=== PATIENT | female | born 1995 | race Caucasian/White ===

== ENCOUNTER 2017-10-19 16:40 | Emergency (ER) | payer BC, OTHER | END 2017-10-19 17:17 | disposition left against medical advice (07) | LOC: FB.ED 16:40 | DX: Z53.21 Procedure and treatment not carried out due to patient leaving prior to being seen by health care provider (principal) ==

== ENCOUNTER 2019-01-16 07:26 | Observation (INO) | payer MEDICAID ==
[2019-01-16] MEDS ORDERED: Misoprostol 25 MCG (1/4 of 100 MCG) Tab RECTAL ONE (08:45)
[2019-01-16] MEDS ORDERED: Misoprostol 25 MCG (1/4 of 100 MCG) Tab VAG ONE (08:50)
[2019-01-16] MEDS ORDERED: Ampicillin 2 GM in Sodium Chloride 0.9% 100 ML IV ONE (09:00)
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
[2019-01-16] MEDS ORDERED: Sodium Chloride 0.9% 250 ML IV SCH (09:30)
[2019-01-16] MEDS: Sodium Chloride 0.9% 10 ML Syringe FLUSH PRN ×2 (09:31→13:29)
[2019-01-16] MEDS ORDERED: Lactated Ringers 1,000 ML IV SCH (12:45)
[2019-01-16] MEDS: Ampicillin 1 GM in Sodium Chloride 0.9% 50 ML IV SCH ×2 (13:20→17:37)
--- NOTE | 2019-01-18 20:10 | DISCH ---
DISCHARGE DATE: 01/16/2019 REASON FOR ADMISSION: Induction of labor. DISCHARGE DIAGNOSIS: Failed induction. BRIEF HISTORY: This is a 23-year-old primigravida, brought in at term for induction of labor. Pitocin was initiated with some progression after Cytotec. However, due to the weather and inability to obtain enough emergency staff, the procedure for induction was abandoned, and the patient was sent home to return tomorrow morning. I spent more than 35 minutes in the discharge of the patient. /[id number] PURA/CLAUDE
== END 2019-01-16 20:05 | disposition home or self-care (01) ==
LOC: FB.OB 07:26
PROVIDERS: ADMIT Family Medicine; ATTEND Family Medicine
DX: O61.0 Failed medical induction of labor (principal); O99.343 Other mental disorders complicating pregnancy, third trimester; F90.9 Attention-deficit hyperactivity disorder, unspecified type; F41.1 Generalized anxiety disorder; O99.820 Streptococcus B carrier state complicating pregnancy; Z3A.39 39 weeks gestation of pregnancy; Z79.899 Other long term (current) drug therapy
CPT/HCPCS: 36415; 85025; 86850; 86900; 86901; A9270; J0290; J7030; J7050

== ENCOUNTER 2019-01-17 07:00 | Inpatient (IN) | payer MEDICAID ==
[~2019-01-17 07:00] MED LIST: Sodium Chloride 0.9% 250 ML IV SCH
[2019-01-17] MEDS ORDERED: Ampicillin 2 GM in Sodium Chloride 0.9% 50 ML IV ONE (07:13)
[2019-01-17] MEDS ORDERED: Ampicillin 2 GM in Sodium Chloride 0.9% 100 ML IV ONE (07:30)
[2019-01-17] MEDS ORDERED: Lactated Ringers 1,000 ML IV ONE (08:42)
[2019-01-17] MEDS ORDERED: fentaNYL 400 MCG in Ropivacaine HCl/PF 200 ML IV ONE (09:50)
[2019-01-17] MEDS ORDERED: Promethazine 6.25 MG in Sodium Chloride 0.9% 50 ML IV PRN (09:52)
[2019-01-17] MEDS ORDERED: Promethazine 12.5 MG in Sodium Chloride 0.9% 50 ML IV PRN (09:52)
[2019-01-17] MEDS ORDERED: Naloxone 0.4 MG/ML SDV IVPUSH PRN (09:52)
[2019-01-17] MEDS ORDERED: Ondansetron 4 MG/2 ML SDV IVPUSH PRN (09:52)
[2019-01-17] MEDS ORDERED: diphenhydrAMINE 50 MG/ML SDV IV PRN (09:52)
[2019-01-17] MEDS ORDERED: Lactated Ringers 500 ML IV SCH (10:00)
[2019-01-17] MEDS ORDERED: Lactated Ringers 1,000 ML IV SCH (10:00)
[2019-01-17] MEDS: ePHEDrine 50 MG/ML SDV IVPUSH PRN ×4 (10:08→13:33)
[2019-01-17] MEDS: Ampicillin 1 GM in Sodium Chloride 0.9% 50 ML IV SCH ×3 (11:12→19:41)
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
[2019-01-17] MEDS ORDERED: Acetaminophen/Codeine 300-30 MG Tab PO PRN (17:28)
--- NOTE | 2019-01-17 17:32 | PCM.DEL ---
L & D Note - General Info Date of Service: 01/17/19 - Delivery Note Labor: Spontaneous, Augmented by ARM Delivery Outcome: Livebirth Infant Delivery Method: Spontaneous Vaginal Delivery-Single Presentation: Vertex Nuchal Cord: None Prep: Povidone-Iodine (Betadine Anesthesia Type: Epidural Amniotic Fluid Description: Clear Episiotomy Type: None Laceration: 2nd Degree Suture type: Chromic Suture size: 4-0 Placenta: Intact, Spontaneous Cord: 3 Vessels Estimated Blood Loss: 300 Resuscitation Needed: No [place]: Suctioned, Bulb Syringe, Stimulated, Warmed, Warmer Used Provider: Stanley Bello Score 5 min: 9 Score 10 min: 9 Second Stage Interventions: Reports: Second Nurse Assessed Progress of Descent, Second Nurse Reviewed Heart Tones, Encouragement Given, Pushing Effectively, Pushing, Birthing Stool - General Info Date of Service: 01/17/19 Functional Status: Reports: Pain Controlled - Review of Systems General: Reports: No Symptoms HEENT: Reports: No Symptoms Pulmonary: Reports: No Symptoms Cardiovascular: Reports: No Symptoms Gastrointestinal: Reports: No Symptoms Genitourinary: Reports: No Symptoms Musculoskeletal: Reports: No Symptoms Skin: Reports: No Symptoms Neurological: Reports: No Symptoms Psychiatric: Reports: No Symptoms - Patient Data Vitals - Most Recent: Last Vital Signs Temp 97.5 F 01/17/19 07:09 Pulse 81 01/17/19 15:41 Resp 18 01/17/19 09:59 BP 118/72 01/17/19 15:30 Pulse Ox 100 01/17/19 14:26 Weight - Most Recent: 92.533 kg Med Orders - Current: Current Medications Diphenhydramine HCl (Benadryl) 25 mg IV ASDIRECTED PRN PRN Reason: Pruritus Ephedrine Sulfate (Ephedrine Sulfate) 5 mg IVPUSH ASDIRECTED PRN PRN Reason: Hypotension Last Admin: 01/17/19 13:33 Dose: 5 mg Ampicillin Sodium 1 gm/ Sodium (Chloride) 50 mls @ 100 mls/hr IV Q4H RON Last Admin: 01/17/19 15:09 Dose: 100 mls/hr Lactated Ringer's (Ringers, Lactated) 1,000 mls @ 999 mls/hr IV BOLUS RON Promethazine HCl 6.25 mg/ (Sodium Chloride) 50.25 mls @ 200 mls/hr IV Q4H PRN PRN Reason: Nausea/Vomiting Promethazine HCl 12.5 mg/ (Sodium Chloride) 50.5 mls @ 200 mls/hr IV Q6H PRN PRN Reason: Nausea/Vomiting Lactated Ringer's (Ringers, Lactated) 1,000 mls @ 125 mls/hr IV ASDIRECTED RON Oxytocin/Sodium Chloride (Pitocin In Ns 20 Units/1,000 Ml) 20 unit in 1,000 mls @ 6 mls/hr IV TITRATE RON; Protocol Last Admin: 01/17/19 15:11 Dose: 2 munits/min, 6 mls/hr Naloxone HCl (Narcan) 0.1 mg IVPUSH ONETIME PRN PRN Reason: Sedation Ondansetron HCl (Zofran) 4 mg IVPUSH Q6H PRN PRN Reason: Nausea/Vomiting Discontinued Medications Ampicillin Sodium 2 gm/ Sodium (Chloride) 100 mls @ 200 mls/hr IV ONETIME ONE Stop: 01/17/19 07:59 Last Admin: 01/17/19 07:35 Dose: 200 mls/hr Lactated Ringer's (Ringers, Lactated) 1,000 mls @ 999 mls/hr IV BOLUS ONE Stop: 01/17/19 09:42 Last Admin: 01/17/19 08:55 Dose: 999 mls/hr - Exam General: Alert, Oriented HEENT: Pupils Equal, Pupils Reactive, EOMI, Mucous Membr. Moist/[place] Neck: Supple Lungs: Clear to Auscultation, Normal Respiratory Effort Cardiovascular: Regular Rate, Regular Rhythm GI/Abdominal Exam: Normal Bowel Sounds, Soft, Non-Tender, No Organomegaly, No Distention, No Abnormal Bruit, No Mass, Pelvis Stable (Female) Exam: Normal External Exam, Normal Speculum Exam, Normal Bimanual Exam Back Exam: Normal Inspection, Full Range of Motion Extremities: Normal Inspection, Normal Range of Motion, Non-Tender, No Pedal Edema, Normal Capillary Refill Skin: Warm, Dry, Intact Wound/Incisions: Healing Well Neurological: No New Focal Deficit Psy/Mental Status: Alert, Normal Affect, Normal Mood Physical Findings Comments:: Routine care - Problem List & Annotations (1) SNOMED Code(s): 75748264 Code(s): Z34.90 - ENCNTR FOR SUPRVSN OF NORMAL , UNSP, UNSP TRIMESTER Status: Acute Qualifiers: Weeks of gestation: 40 weeks Qualified Code(s): Z3A.40 - 40 weeks gestation of (2) ADHD SNOMED Code(s): 172989172 Code(s): F90.9 - ATTENTION-DEFICIT HYPERACTIVITY DISORDER, UNSPECIFIED TYPE Status: Acute Qualifiers: (3) JORDY (generalized anxiety disorder) SNOMED Code(s): 63482256 Code(s): F41.1 - GENERALIZED ANXIETY DISORDER Status: Acute (4) Group B streptococcal carriage complicating SNOMED Code(s): 078835071448336 Code(s): O99.820 - STREPTOCOCCUS B CARRIER STATE COMPLICATING Status: Acute - Problem List Review Problem List Initiated/Reviewed/Updated: Yes - My Orders Last 24 Hours: My Active Orders 01/17/19 08:45 Admission Status [Patient Status] [ADT] Routine 01/17/19 10:00 Lactated Ringers [Ringers, Lactated] 1,000 ml IV ASDIRECTED 01/17/19 11:00 Ampicillin 1 gm Sodium Chloride 0.9% [Normal Saline] 50 ml IV Q4H 01/17/19 14:56 Communication Order [RC] ASDIRECTED Communication Order [RC] ASDIRECTED Communication Order [RC] ASDIRECTED Communication Order [RC] ASDIRECTED Non Stress Test [RC] Click to Edit Notify Provider [RC] PRN Notify Provider [RC] STAT Vital Signs [RC] PER UNIT ROUTINE 01/17/19 15:00 Oxytocin/Normal Saline [Pitocin in NS 20 Units/1,000 ML] 20 unit in 1,000 ml IV TITRATE 01/17/19 17:28 Up ad Nataly [RC] ASDIRECTED Vital Signs [RC] PFP Acetaminophen/Codeine [Tylenol with Codeine No.3 300MG/30MG] 1 tab PO Q4H PRN Ibuprofen [Motrin] 600 mg PO Q4H PRN Resuscitation Status Routine 01/17/19 17:29 Ice Therapy [OM.PC] Per Unit Routine Perineal Care [OM.PC] Per Unit Routine Sitz Bath [OM.PC] Per Unit Routine 01/17/19 Breakfast Regular Diet [DIET] 01/18/19 05:11 CBC WITH AUTO DIFF [HEME] AM - Plan Plan:: Routine care
[2019-01-17] MEDS: Ibuprofen 600 MG Tab PO PRN (19:57)
[2019-01-18] MEDS: Ibuprofen 600 MG Tab PO PRN ×3 (02:30→20:19)
--- NOTE | 2019-01-18 19:22 | PCM.PNPP ---
- General Info Date of Service: 01/18/19 Subjective Update: Doing well,except fatigue. Functional Status: Reports: Pain Controlled - Review of Systems General: Reports: No Symptoms HEENT: Reports: No Symptoms Pulmonary: Reports: No Symptoms Cardiovascular: Reports: No Symptoms Gastrointestinal: Reports: No Symptoms Genitourinary: Reports: No Symptoms Musculoskeletal: Reports: No Symptoms Skin: Reports: No Symptoms Neurological: Reports: No Symptoms Psychiatric: Reports: No Symptoms - General Info Date of Service: 01/18/19 - Patient Data Vital Signs - Most Recent: Last Vital Signs Temp 98.1 F 01/18/19 18:17 Pulse 850 H 01/18/19 18:17 Resp 18 01/18/19 18:17 BP 120/63 01/18/19 18:17 Pulse Ox 98 01/18/19 18:17 Weight - Most Recent: 92.533 kg Lab Results - Last 24 Hours: Laboratory Results - last 24 hr 01/18/19 01/18/19 Range/Units 06:15 16:15 WBC 9.8 (4.5-12.0) X10-3/uL RBC 3.75 (3.23-5.20) x10(6)uL Hgb 7.9 L 8.4 L (11.5-15.5) g/dL Hct 25.7 L (30.0-51.3) % MCV 68.6 L (80-96) fL MCH 21.1 L (27.7-33.6) pg MCHC 30.8 L (32.2-35.4) g/dL RDW 15.5 (11.5-15.5) % Plt Count 324 (125-369) X10(3)uL MPV 6.5 L (7.4-10.4) fL Neut % (Auto) 60.2 (46-82) % Lymph % (Auto) 30.7 (13-37) % [place] % (Auto) 7.9 (4-12) % Eos % (Auto) 1 (1.0-5.0) % Baso % (Auto) 0 (0-2) % Neut # (Auto) 5.9 (1.6-8.3) # Lymph # (Auto) 3.0 (0.6-5.0) # Kleberg # (Auto) 0.8 (0.0-1.3) # Eos # (Auto) 0.1 (0.0-0.8) # Baso # (Auto) 0.0 (0.0-0.2) # Med Orders - Current: Current Medications Acetaminophen/Codeine Phosphate (Tylenol With Codeine No.3 300mg/30mg) 1 tab PO Q4H PRN PRN Reason: Pain (moderate 4-6) Diphenhydramine HCl (Benadryl) 25 mg IV ASDIRECTED PRN PRN Reason: Pruritus Ephedrine Sulfate (Ephedrine Sulfate) 5 mg IVPUSH ASDIRECTED PRN PRN Reason: Hypotension Last Admin: 01/17/19 13:33 Dose: 5 mg Lactated Ringer's (Ringers, Lactated) 1,000 mls @ 999 mls/hr IV BOLUS RON Promethazine HCl 6.25 mg/ (Sodium Chloride) 50.25 mls @ 200 mls/hr IV Q4H PRN PRN Reason: Nausea/Vomiting Promethazine HCl 12.5 mg/ (Sodium Chloride) 50.5 mls @ 200 mls/hr IV Q6H PRN PRN Reason: Nausea/Vomiting Lactated Ringer's (Ringers, Lactated) 1,000 mls @ 125 mls/hr IV ASDIRECTED RON Oxytocin/Sodium Chloride (Pitocin In Ns 20 Units/1,000 Ml) 20 unit in 1,000 mls @ 6 mls/hr IV TITRATE RON; Protocol Last Titration: 01/17/19 17:16 Dose: 999 munits/min, 2,997 mls/hr Sodium Chloride (Normal Saline) 250 mls @ 100 mls/hr IV ASDIRECTED RON Last Admin: 01/17/19 07:30 Dose: 100 mls/hr Ibuprofen (Motrin) 600 mg PO Q4H PRN PRN Reason: Pain Last Admin: 01/18/19 09:24 Dose: 600 mg Naloxone HCl (Narcan) 0.1 mg IVPUSH ONETIME PRN PRN Reason: Sedation Ondansetron HCl (Zofran) 4 mg IVPUSH Q6H PRN PRN Reason: Nausea/Vomiting Last Admin: 01/17/19 19:56 Dose: 4 mg Discontinued Medications Ampicillin Sodium 1 gm/ Sodium (Chloride) 50 mls @ 100 mls/hr IV Q4H RON Last Admin: 01/17/19 19:41 Dose: Not Given Ampicillin Sodium 2 gm/ Sodium (Chloride) 100 mls @ 200 mls/hr IV ONETIME ONE Stop: 01/17/19 07:59 Last Admin: 01/17/19 07:35 Dose: 200 mls/hr Lactated Ringer's (Ringers, Lactated) 1,000 mls @ 999 mls/hr IV BOLUS ONE Stop: 01/17/19 09:42 Last Admin: 01/17/19 08:55 Dose: 999 mls/hr - Infant Interaction Infant Disposition, : in Room with Family Infant Feeding: Attempted ; Nursed Fair/Poor Support Person: Significant Other - Recovery Exam Fundal Tone: Firm Fundal Level: 3 Fingerbreadths Below Umbilicus Fundal Placement: Midline Lochia Amount: Small Lochia Color: Rubra/Red Perineum Description: Intact, Minimal Bruising/Swelling Episiotomy/Laceration: Approximated Bladder Status: Voiding - Exam General: Alert, Oriented HEENT: Pupils Equal Neck: Supple Lungs: Clear to Auscultation, Normal Respiratory Effort Cardiovascular: Regular Rate, Regular Rhythm GI/Abdominal Exam: Normal Bowel Sounds, Soft, Non-Tender, No Organomegaly, No Distention, No Abnormal Bruit, No Mass, Pelvis Stable Extremities: Normal Inspection, Normal Range of Motion, Non-Tender, No Pedal Edema, Normal Capillary Refill Skin: Warm, Dry, Intact Wound/Incisions: Healing Well Neurological: No New Focal Deficit Psy/Mental Status: Alert, Normal Affect, Normal Mood - Problem List & Annotations (1) SNOMED Code(s): 92508460 Code(s): Z34.90 - ENCNTR FOR SUPRVSN OF NORMAL , UNSP, UNSP TRIMESTER Status: Acute Current Visit: No Qualifiers: Weeks of gestation: 40 weeks Qualified Code(s): Z3A.40 - 40 weeks gestation of (2) ADHD SNOMED Code(s): 342059667 Code(s): F90.9 - ATTENTION-DEFICIT HYPERACTIVITY DISORDER, UNSPECIFIED TYPE Status: Acute Current Visit: No Qualifiers: (3) JORDY (generalized anxiety disorder) SNOMED Code(s): 87225943 Code(s): F41.1 - GENERALIZED ANXIETY DISORDER Status: Acute Current Visit : No (4) Group B streptococcal carriage complicating SNOMED Code(s): 849674989617473 Code(s): O99.820 - STREPTOCOCCUS B CARRIER STATE COMPLICATING Status: Acute Current Visit: No (5) Anemia SNOMED Code(s): 393796239 Code(s): D64.9 - ANEMIA, UNSPECIFIED Status: Acute Current Visit: Yes - Problem List Review Problem List Initiated/Reviewed/Updated: Yes - Plan Plan:: Routine care .Hgb up to 8.9.DC in AM
[2019-01-19] MEDS: Ibuprofen 600 MG Tab PO PRN (05:00)
--- NOTE | 2019-01-19 06:43 | PCM.PNPP ---
- General Info Date of Service: 01/19/19 Functional Status: Reports: Pain Controlled - Review of Systems General: Reports: No Symptoms HEENT: Reports: No Symptoms Pulmonary: Reports: No Symptoms Cardiovascular: Reports: No Symptoms Gastrointestinal: Reports: No Symptoms Genitourinary: Reports: No Symptoms Musculoskeletal: Reports: No Symptoms Skin: Reports: No Symptoms Neurological: Reports: No Symptoms Psychiatric: Reports: No Symptoms - General Info Date of Service: 01/19/19 - Patient Data Vital Signs - Most Recent: Last Vital Signs Temp 98.3 F 01/19/19 00:00 Pulse 67 01/19/19 00:00 Resp 16 01/19/19 00:00 BP 111/61 01/19/19 00:00 Pulse Ox 99 01/19/19 00:00 Weight - Most Recent: 92.533 kg Lab Results - Last 24 Hours: Laboratory Results - last 24 hr 01/18/19 01/18/19 Range/Units 06:15 16:15 WBC 9.8 (4.5-12.0) X10-3/uL RBC 3.75 (3.23-5.20) x10(6)uL Hgb 7.9 L 8.4 L (11.5-15.5) g/dL Hct 25.7 L (30.0-51.3) % MCV 68.6 L (80-96) fL MCH 21.1 L (27.7-33.6) pg MCHC 30.8 L (32.2-35.4) g/dL RDW 15.5 (11.5-15.5) % Plt Count 324 (125-369) X10(3)uL MPV 6.5 L (7.4-10.4) fL Neut % (Auto) 60.2 (46-82) % Lymph % (Auto) 30.7 (13-37) % [place] % (Auto) 7.9 (4-12) % Eos % (Auto) 1 (1.0-5.0) % Baso % (Auto) 0 (0-2) % Neut # (Auto) 5.9 (1.6-8.3) # Lymph # (Auto) 3.0 (0.6-5.0) # [place] # (Auto) 0.8 (0.0-1.3) # Eos # (Auto) 0.1 (0.0-0.8) # Baso # (Auto) 0.0 (0.0-0.2) # Med Orders - Current: Current Medications Acetaminophen/Codeine Phosphate (Tylenol With Codeine No.3 300mg/30mg) 1 tab PO Q4H PRN PRN Reason: Pain (moderate 4-6) Ibuprofen (Motrin) 600 mg PO Q4H PRN PRN Reason: Pain Last Admin: 01/19/19 05:00 Dose: 600 mg Discontinued Medications Diphenhydramine HCl (Benadryl) 25 mg IV ASDIRECTED PRN PRN Reason: Pruritus Stop: 01/19/19 00:26 Ephedrine Sulfate (Ephedrine Sulfate) 5 mg IVPUSH ASDIRECTED PRN PRN Reason: Hypotension Last Admin: 01/17/19 13:33 Dose: 5 mg Ampicillin Sodium 1 gm/ Sodium (Chloride) 50 mls @ 100 mls/hr IV Q4H RON Last Admin: 01/17/19 19:41 Dose: Not Given Ampicillin Sodium 2 gm/ Sodium (Chloride) 100 mls @ 200 mls/hr IV ONETIME ONE Stop: 01/17/19 07:59 Last Admin: 01/17/19 07:35 Dose: 200 mls/hr Lactated Ringer's (Ringers, Lactated) 1,000 mls @ 999 mls/hr IV BOLUS ONE Stop: 01/17/19 09:42 Last Admin: 01/17/19 08:55 Dose: 999 mls/hr Lactated Ringer's (Ringers, Lactated) 1,000 mls @ 999 mls/hr IV BOLUS RON Promethazine HCl 6.25 mg/ (Sodium Chloride) 50.25 mls @ 200 mls/hr IV Q4H PRN PRN Reason: Nausea/Vomiting Promethazine HCl 12.5 mg/ (Sodium Chloride) 50.5 mls @ 200 mls/hr IV Q6H PRN PRN Reason: Nausea/Vomiting Lactated Ringer's (Ringers, Lactated) 1,000 mls @ 125 mls/hr IV ASDIRECTED RON Oxytocin/Sodium Chloride (Pitocin In Ns 20 Units/1,000 Ml) 20 unit in 1,000 mls @ 6 mls/hr IV TITRATE RON; Protocol Last Titration: 01/17/19 17:16 Dose: 999 munits/min, 2,997 mls/hr Sodium Chloride (Normal Saline) 250 mls @ 100 mls/hr IV ASDIRECTED [facility] Last Admin: 01/17/19 07:30 Dose: 100 mls/hr Naloxone HCl (Narcan) 0.1 mg IVPUSH ONETIME PRN PRN Reason: Sedation Ondansetron HCl (Zofran) 4 mg IVPUSH Q6H PRN PRN Reason: Nausea/Vomiting Last Admin: 01/17/19 19:56 Dose: 4 mg - Interaction Disposition, : [place] in Room with Family Feeding: Attempted ; Nursed Fair/Poor Support Person: Significant Other - Recovery Exam Fundal Tone: Firm Fundal Level: 3 Fingerbreadths Below Umbilicus Fundal Placement: Midline Lochia Amount: Small, Moderate Lochia Color: Rubra/Red Perineum Description: Intact, Minimal Bruising/Swelling Episiotomy/Laceration: Approximated Bladder Status: Voiding - Exam General: Alert, Oriented HEENT: Pupils Equal Neck: Supple Lungs: Clear to Auscultation, Normal Respiratory Effort Cardiovascular: Regular Rate, Regular Rhythm GI/Abdominal Exam: Normal Bowel Sounds, Soft, Non-Tender, No Organomegaly, No Distention, No Abnormal Bruit, No Mass, Pelvis Stable Extremities: Normal Inspection, Normal Range of Motion, Non-Tender, No Pedal Edema, Normal Capillary Refill Skin: Warm, Dry, Intact Wound/Incisions: Healing Well Neurological: No New Focal Deficit Psy/Mental Status: Alert, Normal Affect, Normal Mood - Problem List & Annotations (1) SNOMED Code(s): 43198250 Code(s): Z34.90 - ENCNTR FOR SUPRVSN OF NORMAL , UNSP, UNSP TRIMESTER Status: Acute Current Visit: No Qualifiers: Weeks of gestation: 40 weeks Qualified Code(s): Z3A.40 - 40 weeks gestation of (2) ADHD SNOMED Code(s): 544993705 Code(s): F90.9 - ATTENTION-DEFICIT HYPERACTIVITY DISORDER, UNSPECIFIED TYPE Status: Acute Current Visit: No Qualifiers: (3) JORDY (generalized anxiety disorder) SNOMED Code(s): 19775084 Code(s): F41.1 - GENERALIZED ANXIETY DISORDER Status: Acute Current Visit : No (4) Group B streptococcal carriage complicating SNOMED Code(s): 044037183707022 Code(s): O99.820 - STREPTOCOCCUS B CARRIER STATE COMPLICATING Status: Acute Current Visit: No (5) Anemia SNOMED Code(s): 474801802 Code(s): D64.9 - ANEMIA, UNSPECIFIED Status: Acute Current Visit: Yes - Problem List Review Problem List Initiated/Reviewed/Updated: Yes - Plan Plan:: Routine Discharge.Hgb up to 8.9.Replace Iron.DC in AM
--- NOTE | 2019-01-20 08:11 | DISCH ---
DISCHARGE DATE: 01/19/2019 ADMISSION DIAGNOSES: 1. . 2. Labor. 3. Attention deficit hyperactivity disorder. 4. Group B Strep colonization affecting . 5. History of gastric bypass. DISCHARGE DIAGNOSES: 1. . 2. Labor. 3. Attention deficit hyperactivity disorder. 4. Group B Strep colonization affecting . 5. History of gastric bypass. 6. Anemia due to blood loss. PROCEDURES: 1. Spontaneous vaginal delivery. 2. Second-degree perineal tear repair. BRIEF HISTORY: A 23-year-old female who delivered on Sunday vaginally. , she did very well. Hemoglobin down to 8.9. [place] tired but otherwise asymptomatic. She is and would like to go home today. DISCHARGE MEDICATIONS: 1. Iron supplementation. 2. Ferrous sulfate 325 mg once a day with food. 3. vitamins 1 a day. 4. Resume home medications. 5. Use Motrin p.r.n. Discharge time, more than 35 minutes. /[id number] PURA/CLAUDE
== END 2019-01-19 10:45 | disposition home or self-care (01) | DRG 807 ==
LOC: FB.OBCHECK 07:00 → EDSTATUS 07:04 → FB.OB 07:06 → OBSVTOIN 08:45
PROVIDERS: ADMIT Family Medicine; ATTEND Family Medicine
PROC: 10E0XZZ Delivery of Products of Conception, External Approach (ICD-10-PCS; principal; 2019-01-17)
PROC: 0KQM0ZZ Repair Perineum Muscle, Open Approach (ICD-10-PCS; 2019-01-17)
PROC: 00HU33Z Insertion of Infusion Device into Spinal Canal, Percutaneous Approach (ICD-10-PCS; 2019-01-17)
DX: O99.824 Streptococcus B carrier state complicating childbirth (principal); Z37.0 Single live birth; O70.1 Second degree perineal laceration during delivery; O99.02 Anemia complicating childbirth; O99.354 Diseases of the nervous system complicating childbirth; Z3A.40 40 weeks gestation of pregnancy; F90.9 Attention-deficit hyperactivity disorder, unspecified type; F41.1 Generalized anxiety disorder
CPT/HCPCS: 36415; 59409; 85018; 85025; A9270-GY; J0290; J2405; J2590; J2795; J3010; J7050; J7120

== ENCOUNTER 2020-09-25 19:49 | Emergency (ER) | payer MEDICAID ==
[2020-09-25] MEDS ORDERED: hydrOXYzine HCl 50 MG/ML SDV IM ONE (20:40)
[2020-09-25] MEDS ORDERED: hydrOXYzine HCl 25 MG Tab PO ONE ×2 (20:49→20:50)
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
== END 2020-09-25 21:45 | disposition home or self-care (01) ==
LOC: FB.ED 19:49
DX: U07.1 COVID-19 (principal); F41.9 Anxiety disorder, unspecified; F90.9 Attention-deficit hyperactivity disorder, unspecified type; Z79.899 Other long term (current) drug therapy
CPT/HCPCS: 36415; 80053; 85025; 86140; 96372; 99284; A9270; J3410

== ENCOUNTER 2021-07-10 18:46 | Emergency (ER) | payer MEDICAID ==
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
--- NOTE | 2021-07-11 11:35 | CR ---
INDICATION: Twisted left ankle. LEFT ANKLE: Three views of the left ankle revealed no definite acute fracture or dislocation. The ankle mortise was symmetrical with joint space normal. Talar dome was intact. No significant apparent soft tissue swelling was noted. There is a small curvilinear area of increased density inferior to the lateral malleolus, which is very faint and likely represents dystrophic calcification in soft tissues from a previous injury. A moderate sized plantar calcaneal spur is also noted. If symptoms persist - if occult fracture site is suspected clinically, reexamination in 10 to 14 days may be helpful. MTDD
== END 2021-07-10 20:00 | disposition home or self-care (01) ==
LOC: FB.ED 18:46
DX: S93.402A Sprain of unspecified ligament of left ankle, initial encounter (principal); X50.1XXA Overexertion from prolonged static or awkward postures, initial encounter
CPT/HCPCS: 73610-LT; 99283-25

== ENCOUNTER 2022-08-17 22:36 | Emergency (ER) | payer MEDICAID ==
[2022-08-17] MEDS ORDERED: Azithromycin 250 MG Tab PO ONE (22:37)
[2022-08-17] MEDS ORDERED: Codeine/guaiFENesin 100mg-10 MG/5 ML Soln 118 ML Bottle PO ONE (22:37)
[2022-08-17] MEDS ORDERED: predniSONE 20 MG Tab PO ONE (22:37)
== END 2022-08-17 23:10 | disposition home or self-care (01) ==
LOC: FB.ED 22:36
DX: F17.200 Nicotine dependence, unspecified, uncomplicated (principal); Z86.16 Personal history of COVID-19
CPT/HCPCS: 99283; A9270-GY; J7512

== ENCOUNTER 2022-12-13 06:02 | Emergency (ER) | payer MEDICAID ==
[2022-12-13] MEDS: HYDROmorphone 2 MG/ML SDV IM ONE (06:33)
[2022-12-13] MEDS: hydrOXYzine HCl 50 MG/ML SDV IM ONE (06:34)
== END 2022-12-13 06:43 | disposition home or self-care (01) ==
LOC: FB.ED 06:02
DX: M54.6 Pain in thoracic spine (principal); Z86.16 Personal history of COVID-19
CPT/HCPCS: 96372; 99283; J1170; J3410

== ENCOUNTER 2023-04-30 18:07 | Emergency (ER) | payer MEDICAID | END 2023-04-30 19:15 | disposition home or self-care (01) | LOC: FB.ED 18:07 | DX: S93.401A Sprain of unspecified ligament of right ankle, initial encounter (principal); F17.210 Nicotine dependence, cigarettes, uncomplicated; Z86.16 Personal history of COVID-19; X50.1XXA Overexertion from prolonged static or awkward postures, initial encounter | CPT/HCPCS: 73610-RT; 99282; 99283 ==

== ENCOUNTER 2023-12-21 10:29 | Emergency (ER) | payer MEDICAID ==
[2023-12-21] MEDS: Promethazine 25 MG/ML SDV IM ONE (11:56)
[2023-12-21] MEDS: HYDROmorphone 2 MG/ML SDV IM ONE (11:57)
== END 2023-12-21 13:12 | disposition home or self-care (01) ==
LOC: FB.ED 10:29
DX: G89.29 Other chronic pain (principal); M54.16 Radiculopathy, lumbar region; Z79.899 Other long term (current) drug therapy
CPT/HCPCS: 96372; 99283; J1170; J2550

== ENCOUNTER 2025-08-06 17:54 | Emergency (ER) | payer MEDICAID ==
[2025-08-06] MEDS: Ketorolac 30 MG/ML SDV IM ONE (18:43)
== END 2025-08-06 19:25 | disposition home or self-care (01) ==
LOC: FB.ED 17:54
DX: M45.9 Ankylosing spondylitis of unspecified sites in spine (principal); Z79.899 Other long term (current) drug therapy; Z86.16 Personal history of COVID-19
CPT/HCPCS: 96372; 99283; A9270-GY; J1885; J7512

== ENCOUNTER 2025-08-08 15:09 | Emergency (ER) | payer MEDICAID ==
[2025-08-08] MEDS: Ketorolac 30 MG/ML SDV IM ONE (15:43)
== END 2025-08-08 16:33 | disposition home or self-care (01) ==
LOC: FB.ED 15:09
DX: M62.830 Muscle spasm of back (principal); E66.9 Obesity, unspecified; F17.210 Nicotine dependence, cigarettes, uncomplicated; Z68.31 Body mass index [BMI] 31.0-31.9, adult; Z86.16 Personal history of COVID-19; Z98.84 Bariatric surgery status
CPT/HCPCS: 96372; 99283; A9270; J1885